=== PATIENT | female | born 1930 | race Caucasian/White ===

== ENCOUNTER 2018-02-10 15:16 | Observation (INO) | payer OTHER ==
[~2018-02-10] VITALS: Ht 157.5 cm; Wt 64.4 kg
[~2018-02-10 15:16] MED LIST: ANTIVERT12.5 MG PO; CLONIDINE HCL0.1 MG PO; COZAAR25 MG PO; FISH OIL 1,0001 EAC1 PO; GABAPENTIN100 MG PO; HYDROCODON-ACE1 EA11 PO; LASIX20 MG PO; METOCLOPRAMIDE10 MG PO; OMEPRAZOLE40 MG PO; SIMVASTATIN20 MG PO; VITAMIN D31000 UNI1 PO; XALATAN2.5 ML OU
[2018-02-10 16:00] LABS: BASOPHILS % 0.3 % (0.0-1.0); EOSINOPHILS # (AUTO) 0.1 (0.0-0.4); EOSINOPHILS % 0.6 % (0.0-6.0); HEMATOCRIT 39.4 % (34.2-44.1); HEMOGLOBIN 12.8 g/dL (12.0-16.0); LYMPHOCYTES # (AUTO) 2.1 (1.0-3.2); LYMPHOCYTES % 18.3 % (18.0-39.1); MEAN CORPUSCULAR HEMOGLOBIN 29.2 pg (28-32); MEAN CORPUSCULAR HGB CONC 32.5 g/dL (31-35); MONOCYTES # (AUTO) 1.2 (0.2-0.8); MONOCYTES % 10.2 % (4.4-11.3); NEUTROPHILS # (AUTO) 8.1 (2.1-6.9); NEUTROPHILS % 70.3 % (38.7-80.0); PLATELET COUNT 283 x10e3/uL (140-360); RED BLOOD COUNT 4.38 x10e6/uL (3.6-5.1)
[2018-02-10 16:18] LABS: ALBUMIN 3.5 g/dL (3.5-5.0); ALBUMIN/GLOBULIN RATIO 0.9 (0.8-2.0); ANION GAP 13.7 mmol/L (8-16); CALCIUM 9.6 mg/dL (8.4-10.2); CREATININE, SERUM 1.01 mg/dL (0.57-1.11); MAGNESIUM 1.9 MG/DL (1.3-2.1); PHOSPHORUS 3.3 MG/DL (2.3-4.7); POTASSIUM 3.7 mmol/L (3.5-5.1)
[2018-02-10] MEDS ORDERED: SODIUM CHLORIDE 0.9% 500ML 500 ML IV ONE (16:30)
[2018-02-10 16:37] LABS: THYROID STIMULATING HORMONE 3.331 uIU/mL (0.350-4.940)
--- NOTE | 2018-02-10 17:08 | Diagnostic Imaging Report ---
PROCEDURE:HIP RIGHT 2-3 VW (+/- PELVIS) COMPARISON:None. INDICATIONS:FALL FINDINGS: See conclusion. CONCLUSION: No evidence of acute fracture or dislocation of the right hip. Partially imaged advanced degenerative changes of the lower lumbar spine. Dictated by: Jackson Rincon M.D. on 02/10/2018 at 17:09 Electronically approved by: Jackson Rincon M.D. on 02/10/2018 at 17:09
[2018-02-10 17:40] LABS: BILIRUBIN,URINE 1+ (NEGATIVE); CLARITY,URINE SL CLOUDY (CLEAR); COLOR,URINE STRAW (YELLOW); KETONES,URINE TRACE (NEGATIVE); LEUKOCYTE ESTERASE ,URINE NEGATIVE (NEGATIVE); NITRITE,URINE NEGATIVE (NEGATIVE); PROTEIN,URINE DIPSTICK 2+ (NEGATIVE); URINE UROBILINOGEN 1 mg/dL (0.2 - 1)
[2018-02-10 17:48] LABS: RBC,URINE 0-5 /HPF (0-5)
[2018-02-10 17:49] LABS: BACTERIA,URINE MODERATE /HPF; EPITHELIAL CELLS,URINE RARE /LPF; MUCUS,URINE FEW (RARE)
[2018-02-10] MEDS ORDERED: SODIUM CHLORIDE FLUSH 10 ML SYR INJ PRN (18:15)
[2018-02-10] MEDS ORDERED: ONDANSETRON HCL INJ 2 MG/ML VIAL IV PRN (18:15)
[2018-02-10] MEDS ORDERED: SODIUM CHLORIDE 0.9% 1000ML 1,000 ML IV SCH (18:15)
--- OUTSIDE RECORDS SUMMARY | 2018-02-10 18:24 | XMS REPORT ---
Author Author [facility] Address Unknown Phone Unavailable Care Team Providers Care Clinical Provider Trainer Name Role Phone REINA CHEUNG Unavailable Unavailable Problems This patient has no known problems. Allergies, Adverse Reactions, Alerts This patient has no known allergies or adverse reactions. Medications This patient has no known medications. Results Test Description Test Time Test Comments Text Results Atomic Results Result Comments HIP RIGHT 2-3 VW (+/- PELVIS) [place] [address] Patient Name: CAILIN FELDER MR #: [id number] : 1930 Age/Sex: 87/F Req #: [id number] [facility] [place] Physician: Ordered by: REINA CHEUNG MD Report #: [id number] Location: ER Room/Bed: Procedure: [id number] DX/HIP RIGHT 2-3 VW (+/- PELVIS) Exam Date: Exam Time: REPORT STATUS: Signed PROCEDURE: HIP RIGHT 2-3 VW (+/- PELVIS) COMPARISON: None. INDICATIONS: FALL FINDINGS: See conclusion. CONCLUSION: No evidence of acute fracture or dislocation of the right hip. Partially imaged advanced degenerative changes of the lower lumbar spine. Dictated by: Jackson Rincon M.D. on 02/10/2018 at 17:09 Electronically approved by: Jackson Rincon M.D. on 02/10/2018 at 17:09 Dictated By: JACKSON RINCON MD 08 Transcribed By: SEBLE on 02/10/181708 COPY TO: REINA CHEUNG MD
[2018-02-10 22:00] VITALS: BP 98/54
[2018-02-10 22:10] VITALS: BP 98/54
[2018-02-11] VITALS (7 sets, daily range): BP systolic 106–123; BP diastolic 42–68
[2018-02-11] MEDS ORDERED: METOCLOPRAMIDE10 MG PO (01:04)
[2018-02-11] MEDS ORDERED: CITRACAL + D E1 EACH PO (01:04)
[2018-02-11] MEDS ORDERED: FAMOTIDINE20 MG PO (01:04)
[2018-02-11] MEDS ORDERED: TIMOPTIC 0.5%1 EACH OP (01:04)
[2018-02-11] MEDS ORDERED: AMLODIPINE BESYL5 MG PO (01:04)
[2018-02-11] MEDS ORDERED: SODIUM CHLORIDE 0.9% 1000ML 1,000 ML IV SCH ×2 (02:15→04:20)
[2018-02-11] MEDS ORDERED: MECLIZINE HCL 12.5 MG TAB PO PRN (08:30)
[2018-02-11] MEDS ORDERED: TIMOLOL MALEATE OP SCH (09:00)
[2018-02-11 09:25] LABS: THYROID STIMULATING HORMONE 2.075 uIU/mL (0.350-4.940)
--- NOTE | 2018-02-11 09:45 | History and Physical ---
CHIEF COMPLAINT: Generalized weakness and low blood pressure secondary to multiple hypertensive medications taken at baseline. PCP: Dr. Benjamin Laureano HISTORY: Bdeyrq[age]ozs[age]ymoa-old female came to the hospital, brought in with generalized weakness. Blood pressure was low. The patient has been having gradual decline for the past few days. She is on multiple medications. The patient at baseline is taking Norvasc, clonidine, furosemide, losartan for her blood pressure. The patient came in with systolic blood pressure 100/38. She went down to 98/54. Currently, the patient is 106/42. The patient is stable at this time. She is on observation. Baseline dementia. PAST MEDICAL HISTORY: Hypertension, reflux history, chronic pain, osteoarthritis, cataract, hyperlipidemia. The patient has diabetes type 2, recurrent urinary tract infection, history of asthma, history of rheumatoid arthritis, and polyneuropathy. PAST SURGICAL HISTORY: Appendectomy, low back surgery, cholecystectomy, hysterectomy, bilateral knee replacement, tonsillectomy and adenoidectomy. SOCIAL HISTORY: Patient lives at home with her family. She does not smoke or use alcohol. No recreational drug use. The patient is retired. ALLERGIES: TO PENICILLIN. HOME MEDICATIONS: Norvasc, calcium, clonidine, Pepcid, Lasix, gabapentin, [place], Xalatan eyedrop, losartan, meclizine, Reglan, omega-3 fatty acid, omeprazole, simvastatin, and timolol eyedrop. PHYSICAL EXAMINATION: VITAL SIGNS: Temperature is 98, blood pressure 106/42, pulse rate is 80, respiration 18. GENERAL: The patient is not in acute distress. She is awake, confused, however. HEENT: Normocephalic, atraumatic. Sclerae anicteric. NECK: Supple grossly. PULMONARY: Clear. CARDIOVASCULAR: Regular rate and rhythm. ABDOMEN: Soft and unremarkable, obese. EXTREMITIES: No cyanosis or edema. NEURO: No focal deficit. LABORATORY: Sodium is 140, potassium 3.7, chloride 102, bicarb 28, BUN 25, creatinine 1.0, glucose 120. WBC is 11.4, hemoglobin 12.8, hematocrit 39.4, platelet is 280,000. Urinalysis shows 1+ bilirubin, negative leukocyte esterase, moderate bacteria, but WBC is 10. IMAGING TESTS: The hip x-ray has no evidence of acute fracture. IMPRESSION: 1. Medical debility. 2. Hypotension secondary to multiple factors, most likely from medication. 3. Baseline dementia with progression. PLAN: correction worker consultation. Add the patient on a low dose on empiric treatment for the urinary tract infection. Check B12 and folic acid level. Home medications some resume. Discontinue IV fluids for prevention of fluid overload. Will discharge planning on this patient. Job#: [id number]
[2018-02-11 09:55] LABS: FOLATE 17.4 ng/mL (7.0-15.4)
[2018-02-11] MEDS: FAMOTIDINE 20 MG TAB PO SCH ×2 (11:00→18:02)
[2018-02-11] MEDS: PANTOPRAZOLE SOD 40 MG TABEC PO SCH (11:00)
[2018-02-11] MEDS: CEPHALEXIN 500 MG CAP PO SCH ×3 (11:00→21:55)
[2018-02-11] MEDS: LATANOPROST(OPTH) 2.5 ML BTL OU SCH ×2 (11:00→21:55)
[2018-02-11] MEDS: TIMOLOL MALEATE 0.5% OPTH DRP 5 ML BTL OP SCH (13:14)
[2018-02-11] MEDS: SIMVASTATIN 20 MG TAB PO SCH (21:00)
[2018-02-12] VITALS (9 sets, daily range): BP systolic 112–133; BP diastolic 56–68
[2018-02-12 06:41] LABS: BASOPHILS % 0.4 % (0.0-1.0); EOSINOPHILS # (AUTO) 0.2 (0.0-0.4); EOSINOPHILS % 2.1 % (0.0-6.0); HEMATOCRIT 33.8 % (34.2-44.1); LYMPHOCYTES # (AUTO) 1.5 (1.0-3.2); LYMPHOCYTES % 20.6 % (18.0-39.1); MEAN CORPUSCULAR HEMOGLOBIN 28.9 pg (28-32); MEAN CORPUSCULAR HGB CONC 32.5 g/dL (31-35); MEAN CORPUSCULAR VOLUME 88.9 fL (81-99); MONOCYTES # (AUTO) 0.6 (0.2-0.8); MONOCYTES % 8.2 % (4.4-11.3); NEUTROPHILS % 68.3 % (38.7-80.0); PLATELET COUNT 232 x10e3/uL (140-360); RED CELL DISTRIBUTION WIDTH 14.6 % (11.7-14.4)
[2018-02-12 06:55] LABS: ANION GAP 13.3 mmol/L (8-16); BLOOD UREA NITROGEN 11 mg/dL (7-26); BUN/CREATININE RATIO 18 (6-25); CARBON DIOXIDE 26 mmol/L (22-29); CHLORIDE 105 mmol/L (98-107); CREATININE, SERUM 0.62 mg/dL (0.57-1.11); EST GLOMERULAR FILTRATION RATE > 60 ML/MIN (60-); GLUCOSE 90 mg/dL (74-118); POTASSIUM 3.3 mmol/L (3.5-5.1); SODIUM 141 mmol/L (136-145)
[2018-02-12] MEDS: CEPHALEXIN 500 MG CAP PO SCH ×3 (07:25→21:14)
[2018-02-12] MEDS ORDERED: POTASSIUM CHLORIDE 10 MEQ TABCR PO NR (08:45)
[2018-02-12] MEDS: TIMOLOL MALEATE 0.5% OPTH DRP 5 ML BTL OP SCH (09:44)
[2018-02-12] MEDS: PANTOPRAZOLE SOD 40 MG TABEC PO SCH (09:44)
[2018-02-12] MEDS: CARVEDILOL 12.5 MG TAB PO SCH ×2 (09:44→16:30)
[2018-02-12] MEDS: FAMOTIDINE 20 MG TAB PO SCH ×2 (09:44→16:29)
[2018-02-12] MEDS: LATANOPROST(OPTH) 2.5 ML BTL OU SCH (21:14)
[2018-02-12] MEDS: SIMVASTATIN 20 MG TAB PO SCH (21:14)
[2018-02-13 04:00] VITALS: BP 105/59
[2018-02-13] MEDS: CEPHALEXIN 500 MG CAP PO SCH ×3 (05:38→21:34)
[2018-02-13 07:37] VITALS: BP 105/59
[2018-02-13 08:22] VITALS: BP 130/62
[2018-02-13] MEDS: FAMOTIDINE 20 MG TAB PO SCH ×2 (08:33→17:45)
[2018-02-13] MEDS: PANTOPRAZOLE SOD 40 MG TABEC PO SCH (08:33)
[2018-02-13] MEDS: TIMOLOL MALEATE 0.5% OPTH DRP 5 ML BTL OP SCH (08:35)
[2018-02-13] MEDS: CARVEDILOL 12.5 MG TAB PO SCH ×2 (08:35→17:47)
[2018-02-13 12:11] VITALS: BP 113/56
[2018-02-13 16:17] VITALS: BP 131/60
[2018-02-13 20:00] VITALS: BP 131/58
[2018-02-13] MEDS: SIMVASTATIN 20 MG TAB PO SCH (21:00)
[2018-02-13] MEDS: LATANOPROST(OPTH) 2.5 ML BTL OU SCH (21:00)
[2018-02-14] VITALS (8 sets, daily range): BP systolic 129–160; BP diastolic 57–67
[2018-02-14] MEDS: CEPHALEXIN 500 MG CAP PO SCH ×3 (06:00→21:21)
[2018-02-14] MEDS: TIMOLOL MALEATE 0.5% OPTH DRP 5 ML BTL OP SCH (08:22)
[2018-02-14] MEDS: FAMOTIDINE 20 MG TAB PO SCH ×2 (08:22→17:30)
[2018-02-14] MEDS: PANTOPRAZOLE SOD 40 MG TABEC PO SCH (08:22)
[2018-02-14] MEDS: CARVEDILOL 12.5 MG TAB PO SCH ×2 (08:23→17:30)
[2018-02-14] MEDS: SIMVASTATIN 20 MG TAB PO SCH (21:21)
[2018-02-14] MEDS: LATANOPROST(OPTH) 2.5 ML BTL OU SCH (21:21)
[2018-02-15] VITALS (9 sets, daily range): BP systolic 101–162; BP diastolic 54–72
[2018-02-15] MEDS: CEPHALEXIN 500 MG CAP PO SCH ×3 (06:18→21:42)
[2018-02-15 06:53] LABS: ANION GAP 14.3 mmol/L (8-16); BLOOD UREA NITROGEN 8 mg/dL (7-26); BUN/CREATININE RATIO 12 (6-25); CALCIUM 9.2 mg/dL (8.4-10.2); CARBON DIOXIDE 27 mmol/L (22-29); CHLORIDE 100 mmol/L (98-107); CREATININE, SERUM 0.65 mg/dL (0.57-1.11); EST GLOMERULAR FILTRATION RATE > 60 ML/MIN (60-); GLUCOSE 101 mg/dL (74-118); POTASSIUM 3.3 mmol/L (3.5-5.1); SODIUM 138 mmol/L (136-145)
[2018-02-15] MEDS: PANTOPRAZOLE SOD 40 MG TABEC PO SCH ×3 (07:30→08:35)
[2018-02-15] MEDS: FAMOTIDINE 20 MG TAB PO SCH ×4 (07:30→15:52)
[2018-02-15] MEDS: TIMOLOL MALEATE 0.5% OPTH DRP 5 ML BTL OP SCH (08:13)
[2018-02-15] MEDS: CARVEDILOL 12.5 MG TAB PO SCH ×4 (08:14→17:32)
[2018-02-15] MEDS ORDERED: POTASSIUM CHLORIDE 20 MEQ TAB CR PO SCH (14:11)
[2018-02-15] MEDS ORDERED: DOCUSATE SODIUM 100 MG CAP PO PRN (14:30)
[2018-02-15] MEDS: DEXTROSE 5%/0.9% SOD CHL 1,000 ML IV SCH (15:51)
[2018-02-15] MEDS: MEGACE 400MG/ 10ML CUP PO SCH (15:52)
[2018-02-15] MEDS: SIMVASTATIN 20 MG TAB PO SCH (21:42)
[2018-02-15] MEDS: LATANOPROST(OPTH) 2.5 ML BTL OU SCH (21:42)
[2018-02-16] VITALS (7 sets, daily range): BP systolic 117–144; BP diastolic 56–81
[2018-02-16] MEDS: CEPHALEXIN 500 MG CAP PO SCH ×3 (05:48→21:31)
[2018-02-16] MEDS: FAMOTIDINE 20 MG TAB PO SCH ×2 (07:30→17:15)
[2018-02-16] MEDS: TIMOLOL MALEATE 0.5% OPTH DRP 5 ML BTL OP SCH (09:41)
[2018-02-16] MEDS: PANTOPRAZOLE SOD 40 MG TABEC PO SCH (09:41)
[2018-02-16] MEDS: DEXTROSE 5%/0.9% SOD CHL 1,000 ML IV SCH (09:42)
[2018-02-16] MEDS: CARVEDILOL 12.5 MG TAB PO SCH ×2 (09:42→17:16)
[2018-02-16] MEDS: MEGACE 400MG/ 10ML CUP PO SCH (09:42)
--- NOTE | 2018-02-16 15:43 | Diagnostic Imaging Report ---
PROCEDURE: A single AP view of the chest. COMPARISON: None. INDICATIONS: SHORTNESS OF BREATH, WEAKNESS FINDINGS: Lines/tubes: None. Lungs: The lungs are moderately inflated. There is bibasilar atelectasis and vascular crowding. No evidence of pneumonia or pulmonary edema. Pleura: There is no pleural effusion or pneumothorax. Heart and mediastinum: The heart and the mediastinum are unremarkable. Bones: No acute bony abnormality. Decreased subacromial space bilaterally suggests rotator cuff tear. Partially visualized lower cervical fusion hardware. IMPRESSION: No acute cardiopulmonary disease. Dictated by: Junior Dill M.D. on 02/16/2018 at 15:44 Electronically approved by: Junior Dill M.D. on 02/16/2018 at 15:44
[2018-02-16] MEDS: LATANOPROST(OPTH) 2.5 ML BTL OU SCH (21:31)
[2018-02-16] MEDS: SIMVASTATIN 20 MG TAB PO SCH (21:31)
[2018-02-17 04:38] VITALS: BP 151/67
[2018-02-17] MEDS: CEPHALEXIN 500 MG CAP PO SCH (06:30)
[2018-02-17 07:56] VITALS: BP 136/78
[2018-02-17 07:57] VITALS: BP 128/74
[2018-02-17] MEDS ORDERED: POTASSIUM CHLORIDE 20 MEQ TAB CR PO PRN (08:45)
[2018-02-17 09:32] LABS: BASOPHILS % 0.2 % (0.0-1.0); EOSINOPHILS # (AUTO) 0.1 (0.0-0.4); EOSINOPHILS % 1.1 % (0.0-6.0); HEMATOCRIT 35.1 % (34.2-44.1); HEMOGLOBIN 11.5 g/dL (12.0-16.0); LYMPHOCYTES # (AUTO) 1.8 (1.0-3.2); LYMPHOCYTES % 19.5 % (18.0-39.1); MEAN CORPUSCULAR HEMOGLOBIN 28.7 pg (28-32); MEAN CORPUSCULAR HGB CONC 32.8 g/dL (31-35); MEAN CORPUSCULAR VOLUME 87.5 fL (81-99); MONOCYTES # (AUTO) 0.8 (0.2-0.8); MONOCYTES % 8.3 % (4.4-11.3); NEUTROPHILS # (AUTO) 6.4 (2.1-6.9); NEUTROPHILS % 70.6 % (38.7-80.0); PLATELET COUNT 275 x10e3/uL (140-360); RED BLOOD COUNT 4.01 x10e6/uL (3.6-5.1); RED CELL DISTRIBUTION WIDTH 14.6 % (11.7-14.4)
[2018-02-17 09:52] LABS: ANION GAP 10.3 mmol/L (8-16); BLOOD UREA NITROGEN 10 mg/dL (7-26); BUN/CREATININE RATIO 16 (6-25); CARBON DIOXIDE 29 mmol/L (22-29); CHLORIDE 105 mmol/L (98-107); CREATININE, SERUM 0.63 mg/dL (0.57-1.11); EST GLOMERULAR FILTRATION RATE > 60 ML/MIN (60-); GLUCOSE 109 mg/dL (74-118); POTASSIUM 3.3 mmol/L (3.5-5.1); SODIUM 141 mmol/L (136-145)
[2018-02-17] MEDS: PANTOPRAZOLE SOD 40 MG TABEC PO SCH (10:44)
[2018-02-17] MEDS: FAMOTIDINE 20 MG TAB PO SCH (10:44)
[2018-02-17] MEDS: TIMOLOL MALEATE 0.5% OPTH DRP 5 ML BTL OP SCH (10:45)
[2018-02-17] MEDS: MEGACE 400MG/ 10ML CUP PO SCH (10:45)
[2018-02-17] MEDS: CARVEDILOL 12.5 MG TAB PO SCH (10:45)
[2018-02-17 11:14] VITALS: BP 124/69
== END 2018-02-17 12:39 ==
LOC: ER 15:22 → ERHOLD 18:21 → IMCU 21:45
PROVIDERS: ADMIT Internal Medicine; ATTEND Internal Medicine
DX: I95.2 Hypotension due to drugs (principal); R53.1 Weakness; F03.90 Unspecified dementia, unspecified severity, without behavioral disturbance, psychotic disturbance, mood disturbance, and anxiety; E78.5 Hyperlipidemia, unspecified; E87.6 Hypokalemia; M06.9 Rheumatoid arthritis, unspecified; T46.5X5A Adverse effect of other antihypertensive drugs, initial encounter; Z88.0 Allergy status to penicillin; G89.29 Other chronic pain; Z91.81 History of falling; R53.81 Other malaise
CPT/HCPCS: 36415 ×5; 71045; 73502; 80048 ×3; 80053; 81001; 82607; 82746; 82948 ×2; 83036; 83540; 83735 ×2; 84100; 84443 ×2; 84466; 84484; 85025 ×3; 87086; 93005 ×2; 97116 ×4; 97139 ×3; 97161; 97530 ×2; 99284; G0378 ×8; J7030 ×2; J7040; J7042

== ENCOUNTER 2018-03-06 12:32 | Inpatient (IN) | payer OTHER ==
[2018-03-06] VITALS (17 sets, daily range): BP systolic 93–136; BP diastolic 65–94
[~2018-03-06] VITALS: Ht 157.5 cm; Wt 78.5 kg
[~2018-03-06 12:32] MED LIST changes: +AMLODIPINE BESYL5 MG PO; +CITRACAL + D E1 EACH PO; +FAMOTIDINE20 MG PO; +TIMOPTIC 0.5%1 EACH OP
--- OUTSIDE RECORDS SUMMARY | 2018-03-06 12:36 | XMS REPORT | Continuity of Care Document ---
Author Author [facility] Organization [facility] Address [address] [place] [address] Phone Unavailable Care Team Providers Care Layout Artist Name Role Phone EDWINA AMADOR MD PCP Insurance Providers Guarantor Cailin Land Address [address] [place] [address] Email [email or web address] Payer [employer] Policy Number [id number] Subscriber's Name Cailin Land Relationship 18 Self / Same As Patient Group Number [id number] Group Name [employer] - Medicare Advantage Divis Effective Date 18 Advance Directives Directive Response Recorded Date/Time Does the patient have an advance directive? No 02/10/18 10:00pm If yes, is advance directive on file with [facility]? Yes 09/07/14 10:30pm If not on file with [facility] will patient provide a copy? Yes 06/20/11 12:44pm Do you have a Directive to Physician? No 02/10/18 4:25pm Do you have a Medical Power of Sheet Pile Hammer Operator? No 02/10/18 4:25pm Do you have an out of hospital Do Not Resuscitate Order? No 02/10/18 4:25pm Do you have any special needs we should be aware of? No 02/10/18 4:25pm Do you have a support person here with you today? Yes 02/10/18 4:25pm Did patient receive Notice of Privacy Practices? Yes 02/10/18 4:25pm Did patient receive patient rights and responsibilities? Yes 02/10/18 4:25pm Problems Medical Problem Onset Date Status Abnormal finding on EKG 09/07/2014 Acute Acute onset of vertigo with vomiting and inability to stand 09/07/2014 Acute Generalized weakness Unknown Hypotension (arterial) Unknown Inability to bear weight 09/07/2014 Acute Laceration Unknown Acute Near syncope 09/07/2014 Acute Syncope 09/07/2014 Acute Vertigo 09/07/2014 Acute Medications Current Home Medications Medication Dose Units Route Directions Days Qty Instructions Start Date Amlodipine Besylate 5 Mg Tablet 5 Mg Oral Twice A Day 30 Tab Calcium Carb & Cit/Vitamin D3 (Citracal + D Er Tablet) 1 Each Tablet.er 1 Tab Oral Twice A Day Cholecalciferol (Vitamin D3) (Vitamin D3) 1,000 Unit Tablet 1,000 Unit Oral Twice A Day Clonidine Hcl 0.1 Mg Tablet 0.1 Mg Oral Bedtime 60 Tab Famotidine 20 Mg Tab 40 Mg Oral Twice A Day 30 Tab Furosemide (Lasix) 20 Mg Tablet 2 Mg Oral Daily 30 Tab Gabapentin 100 Mg Capsule 100 Mg Oral Twice A Day Hydrocodone Bit/Acetaminophen (Hydrocodon-Acetaminophen 5-325) 1 Each Tablet 1 Tab Oral Bedtime Latanoprost (Xalatan) 2.5 Ml Drops 1 Drop Each Eye Bedtime Losartan Potassium (Cozaar) 25 Mg Tablet 50 Mg Oral Daily 60 Tab Meclizine Hcl (Antivert) 12.5 Mg Tablet 25 Mg Oral Every 8 Hours as needed for Dizziness 30 Tab 09/08/14 Metoclopramide Hcl 10 Mg Tablet 5 Mg Oral Daily Wilder-3 Fatty Acids/Fish Oil (Fish Oil 1,000 Mg Softgel) 1 Each Capsule 1,000 Mg Oral Daily Omeprazole 40 Mg Capsule.dr 40 Mg Oral Daily Simvastatin 20 Mg Tablet 20 Mg Oral Daily Timolol Maleate/Pf (Timoptic 0.5% Ocudose Drop) 1 Each Droperette 1 Drop Ophthalmic Daily Past Home Medications Medication Directions Ordered Status Metoclopramide Hcl 10 Mg Tablet, 10 Mg Oral Twice A Day Discontinued Social History Social History Problem Response Recorded Date/Time Onset Date Status Hx Psychiatric Problems No 02/10/2018 10:00pm Not Applicable Not Applicable Hx Eating Disorder No 02/10/2018 10:00pm Not Applicable Not Applicable Hx Substance Use Disorder No 02/10/2018 10:00pm Not Applicable Not Applicable Hx Depression Yes 02/10/2018 10:00pm Not Applicable Not Applicable Hx Alcohol Use No 02/10/2018 10:00pm Not Applicable Not Applicable Hx Substance Use Treatment No 02/10/2018 10:00pm Not Applicable Not Applicable Hx Physical Abuse No 02/10/2018 10:00pm Not Applicable Not Applicable Smoking Status Start Date Stop Date Never Smoker Hospital Discharge Instructions No hospital discharge instruction information available. Plan of Care Discharge Date 02/17/18 12:39pm Disposition TRANSFER GROUP HOME Prescriptions See Medication Section Functional Status Query Response Date Recorded FUNCTIONAL STATUS . February 11, 2018 3:51pm Assistive Devices Standard Walker February 10, 2018 10:00pm Ambulation Ability Independent February 10, 2018 10:00pm Toileting Ability Standby Assistance February 15, 2018 5:12pm Allergies, Adverse Reactions, Alerts Allergen Type Severity Reaction Status Last Updated Penicillin Allergy Mild Active 04/12/10 Immunizations No immunization information available. Vital Signs Acute Vital Signs Vital Response Date/Time Temperature (Fahrenheit) 96.4 degrees F (97.6 - 99.5) 02/17/2018 11:14am Pulse Pulse Rate (adult) 70 bpm (60 - 90) 02/17/2018 11:14am Respiratory Rate 19 bpm (12 - 24) 02/17/2018 11:14am Blood Pressure 124/69 mm Hg 02/17/2018 11:14am Height 5 ft 2 in 02/10/2018 3:32pm Weight 142 lb 02/16/2018 2:13am Body Mass Index 26.0 kg/m^2 02/16/2018 2:13am Results Laboratory Results Test Name Result Units Flags Reference Collection Date/Time Result Date/ Time Comments White Blood Count 9.03 x10e3/uL 4.8-10.8 02/17/2018 9:25am 02/17/2018 9 :34am Red Blood Count 4.01 x10e6/uL 3.6-5.1 02/17/2018 9:02/17/2018 9: 34am Hemoglobin 11.5 g/dL L 12.0-16.0 02/17/2018 9:02/17/2018 9:34am Hematocrit 35.1 % 34.2-44.1 02/17/2018 9:02/17/2018 9:34am Mean Corpuscular Volume 87.5 fL 81-99 02/17/2018 9:02/17/2018 9: 34am Mean Corpuscular Hemoglobin 28.7 pg 28-32 02/17/2018 9:02/17/2018 9:34am Mean Corpuscular Hemoglobin Concent 32.8 g/dL 31-35 02/17/2018 9:02/17/2018 9:34am Red Cell Distribution Width 14.6 % H 11.7-14.4 02/17/2018 9:2017 9:34am Platelet Count 275 x10e3/uL 140-360 02/17/2018 9:02/17/2018 9: 34am Neutrophils (%) (Auto) 70.6 % 38.7-80.0 02/17/2018 9:02/17/2018 9: 34am Lymphocytes (%) (Auto) 19.5 % 18.0-39.1 02/17/2018 9:02/17/2018 9: 34am Monocytes (%) (Auto) 8.3 % 4.4-11.3 02/17/2018 9:02/17/2018 9: 34am Eosinophils (%) (Auto) 1.1 % 0.0-6.0 02/17/2018 9:02/17/2018 9: 34am Basophils (%) (Auto) 0.2 % 0.0-1.0 02/17/2018 9:02/17/2018 9:34am IM GRANULOCYTES % 0.3 % 0.0-1.0 02/17/2018 9:02/17/2018 9:34am Neutrophils # (Auto) 6.4 2.1-6.9 02/17/2018 9:02/17/2018 9:34am Lymphocytes # (Auto) 1.8 1.0-3.2 02/17/2018 9:25am 02/17/2018 9:34am Monocytes # (Auto) 0.8 0.2-0.8 02/17/2018 9:25am 02/17/2018 9:34am Eosinophils # (Auto) 0.1 0.0-0.4 02/17/2018 9:25am 02/17/2018 9:34am Basophils # (Auto) 0.0 0.0-0.1 02/17/2018 9:25am 02/17/2018 9:34am Absolute Immature Granulocyte (auto 0.03 x10e3/uL 0-0.1 02/17/2018 9: 25am 02/17/2018 9:34am Urine Color STRAW YELLOW 02/10/2018 5:pm 02/10/2018 5:40pm Urine Clarity SL CLOUDY CLEAR 02/10/2018 5:pm 02/10/2018 5:40pm Urine Specific [place] 1.020 1.010-1.025 02/10/2018 5:21pm 2017 5:40pm Urine pH 5 5 - 7 02/10/2018 5:02/10/2018 5:40pm Urine Leukocyte Esterase NEGATIVE NEGATIVE 02/10/2018 5:pm 2017 5:40pm Urine Nitrite NEGATIVE NEGATIVE 02/10/2018 5:pm 02/10/2018 5:40pm Urine Protein 2+ H NEGATIVE 02/10/2018 5:pm 02/10/2018 5:40pm Urine Glucose (UA) NEGATIVE NEGATIVE 02/10/2018 5:pm 02/10/2018 5: 40pm Urine Ketones TRACE H NEGATIVE 02/10/2018 5:02/10/2018 5:40pm Urine Urobilinogen 1 mg/dL 0.2 - 1 02/10/2018 5:02/10/2018 5:40pm Urine Bilirubin 1+ H NEGATIVE 02/10/2018 5:02/10/2018 5:40pm Urine Blood NEGATIVE NEGATIVE 02/10/2018 5:pm 02/10/2018 5:40pm Urine WBC 6-10 /HPF H 0-5 02/10/2018 5:pm 02/10/2018 5:49pm Urine RBC 0-5 /HPF 0-5 02/10/2018 5:pm 02/10/2018 5:49pm Urine Bacteria MODERATE /HPF H NONE 02/10/2018 5:21pm 02/10/2018 5:49pm Urine Epithelial Cells RARE /LPF NONE 02/10/2018 5:pm 02/10/2018 5: 49pm Urine Hyaline Casts 2-5 H 0-1 02/10/2018 5:21pm 02/10/2018 5:49pm Urine Mucus FEW H RARE 02/10/2018 5:pm 02/10/2018 5:49pm Sodium Level 141 mmol/L 136-145 02/17/2018 9:2502/17/2018 9:53am Potassium Level 3.3 mmol/L L 3.5-5.1 02/17/2018 9:2502/17/2018 9: 53am Chloride Level 105 mmol/L 98-107 02/17/2018 9:02/17/2018 9:53am Carbon Dioxide Level 29 mmol/L 22-02/17/2018 9:25am 02/17/2018 9: 53am Anion Gap 10.3 mmol/L 8-02/17/2018 9:02/17/2018 9:53am Blood Urea Nitrogen 10 mg/dL 7-02/17/2018 9:02/17/2018 9:53am Creatinine 0.63 mg/dL 0.57-1.11 02/17/2018 9:2502/17/2018 9:53am BUN/Creatinine Ratio 16 6-02/17/2018 9:02/17/2018 9:53am Estimat Glomerular Filtration Rate > 60 ML/MIN 60- 02/17/2018 9: 9:53am Ranges were taken from the National Kidney Disease Education Program and the National Kidney Foundation literature. Reference ranges: 60 or greater: Normal 16-59 (for 3 consecutive months): Chronic kidney disease 15 or less: Kidney failure Glucose Level 109 mg/dL 74-118 02/17/2018 9:25am 02/17/2018 9:53am Calcium Level 9.0 mg/dL 8.4-10.2 02/17/2018 9:25am 02/17/2018 9:53am Bedside Glucose 101 mg/dL 70-120 02/12/2018 3:55pm 02/12/2018 4:03pm Meter ID: [id number] Hemoglobin A1c Percent 5.1 % 4.0-7.0 02/11/2018 8:40am 02/11/2018 8: 54am Phosphorus Level 3.3 MG/DL 2.3-4.7 02/10/2018 3:49pm 02/10/2018 4:19pm Magnesium Level 1.7 MG/DL 1.3-2.1 02/11/2018 8:40am 02/11/2018 9:49am Iron Level 22 ug/dL L 50-170 02/11/2018 8:40am 02/11/2018 9:08am Total Iron Binding Capacity 221 ug/dL L 261-478 02/11/2018 8:40am 2017 9:08am Percent Iron Saturation 10 % L 15-50 02/11/2018 8:40am 02/11/2018 9: 08am Transferrin 158 mg/dL L 180-382 02/11/2018 8:40am 02/11/2018 9:08am Total Bilirubin 1.2 mg/dL 0.2-1.2 02/10/2018 3:49pm 02/10/2018 4:19pm Aspartate Amino Transf (AST/SGOT) 16 IU/L 5-34 02/10/2018 3:49pm 2017 4:19pm Alanine Aminotransferase (ALT/SGPT) 20 IU/L 0-55 02/10/2018 3:49pm 08/2018 4:19pm Total Protein 7.2 g/dL 6.5-8.1 02/10/2018 3:49pm 02/10/2018 4:19pm Albumin 3.5 g/dL 3.5-5.0 02/10/2018 3:49pm 02/10/2018 4:19pm Globulin 3.7 g/dL H 2.3-3.5 02/10/2018 3:49pm 02/10/2018 4:19pm Albumin/Globulin Ratio 0.9 0.8-2.0 02/10/2018 3:49pm 02/10/2018 4: 19pm Alkaline Phosphatase 59 IU/L 40-150 02/10/2018 3:49pm 02/10/2018 4: 19pm Troponin I 0.009 ng/mL 0-0.300 02/10/2018 3:49pm 02/10/2018 4:38pm Vitamin B12 Level 601 pg/mL 213-816 02/11/2018 8:40am 02/11/2018 9: 56am Folate 17.4 ng/mL H 7.0-15.4 02/11/2018 8:40am 02/11/2018 9:56am Thyroid Stimulating Hormone (TSH) 2.075 uIU/mL 0.350-4.940 02/11/2018 8: 40am 02/11/2018 9:26am Procedures No procedure information available. Encounters Encounter Location Arrival/Admit Date Discharge/Depart Date Attending Provider Discharged Inpatient (obs) [facility] 02/10/18 6:21pm 12:39pm LORENA LAKHANI MD
[2018-03-06] MEDS: SODIUM CHLORIDE 0.9% 1000ML 1,000 ML IV SCH ×5 (13:06→23:15)
[2018-03-06 13:33] LABS: BASOPHILS % 0.2 % (0.0-1.0); HEMATOCRIT 34.3 % (34.2-44.1); HEMOGLOBIN 11.1 g/dL (12.0-16.0); LYMPHOCYTES # (AUTO) 1.7 (1.0-3.2); LYMPHOCYTES % 14.3 % (18.0-39.1); MEAN CORPUSCULAR HEMOGLOBIN 28.4 pg (28-32); MEAN CORPUSCULAR HGB CONC 32.4 g/dL (31-35); MEAN CORPUSCULAR VOLUME 87.7 fL (81-99); MONOCYTES # (AUTO) 0.7 (0.2-0.8); MONOCYTES % 5.9 % (4.4-11.3); NEUTROPHILS # (AUTO) 9.4 (2.1-6.9); PLATELET COUNT 244 x10e3/uL (140-360); RED BLOOD COUNT 3.91 x10e6/uL (3.6-5.1); RED CELL DISTRIBUTION WIDTH 15.5 % (11.7-14.4)
[2018-03-06 13:37] LABS: ABG HCO3 20 mmol/L (23-28); ABG PCO2 36 mmHg (41-51); ABG PH 7.35 (7.31-7.41); ABG PO2 165 mmHg (80-105)
[2018-03-06 13:51] LABS: CLARITY,URINE SL CLOUDY (CLEAR); COLOR,URINE AMBER (YELLOW)
[2018-03-06 13:52] LABS: BILIRUBIN,URINE 2+ (NEGATIVE); KETONES,URINE NEGATIVE (NEGATIVE); LEUKOCYTE ESTERASE ,URINE NEGATIVE (NEGATIVE); NITRITE,URINE NEGATIVE (NEGATIVE); PROTEIN,URINE DIPSTICK 1+ (NEGATIVE); URINE UROBILINOGEN 1 mg/dL (0.2 - 1)
[2018-03-06 14:03] LABS: ALBUMIN 2.7 g/dL (3.5-5.0); ALBUMIN/GLOBULIN RATIO 0.6 (0.8-2.0); ANION GAP 20.6 mmol/L (8-16); CALCIUM 9.5 mg/dL (8.4-10.2); CREATININE, SERUM 5.74 mg/dL (0.57-1.11); POTASSIUM 3.6 mmol/L (3.5-5.1)
[2018-03-06 14:05] LABS: CREATINE KINASE MB 2.1 ng/mL (0-5.0)
[2018-03-06 14:08] LABS: BACTERIA,URINE FEW /HPF; EPITHELIAL CELLS,URINE FEW /LPF; MUCUS,URINE MODERATE (RARE); RBC,URINE >50 /HPF (0-5)
[2018-03-06] MEDS ORDERED: LEVOFLOXACIN 750MG/D5W 150ML 150 ML IV ONE (14:30)
[2018-03-06] MEDS: NOREPINEPHRINE INJ 4MG/4ML 8 MG in DEXTROSE 5% 250ML 250 ML IV SCH (14:30)
[2018-03-06] MEDS ORDERED: CLINDAMYCIN 300MG 50 ML IV ONE (14:30)
[2018-03-06] MEDS ORDERED: ONDANSETRON HCL 4 MG ORAL DISINTEGRATING TAB PO ONE (14:45)
[2018-03-06 14:47] LABS: INR 1.21; PARTIAL THROMBOPLASTIN TIME 35.4 seconds (23.8-35.5); PROTHROMBIN TIME 14.4 seconds (11.9-14.5)
--- NOTE | 2018-03-06 15:53 | Diagnostic Imaging Report ---
PROCEDURE: A single AP view of the chest. COMPARISON: None. INDICATIONS: WEAK, AMS FINDINGS: Lines/tubes: None. Lungs: The lungs are moderately inflated and clear. Central pulmonary venous congestion. There is no evidence of pneumonia or pulmonary edema. Pleura: There is no pleural effusion or pneumothorax. Heart and mediastinum: Aortic arch calcifications. The heart and the mediastinum are otherwise unremarkable. Bones: No acute bony abnormality. Irregularity of the right humeral head. Decreased subacromial space suggestive of rotator cuff tears. Partially visualized lower cervical fusion hardware. IMPRESSION: 1. No acute cardiopulmonary abnormalities. 2. Irregularity of the right humeral head may be related to projection or reflect a fracture. Recommend correlation with point tenderness and if indicated, dedicated right shoulder radiographs. Dictated by: Junior Dill M.D. on 03/06/2018 at 15:54 Electronically approved by: Junior Dill M.D. on 03/06/2018 at 15:54
--- NOTE | 2018-03-06 16:50 | Diagnostic Imaging Report ---
PROCEDURE: CT ABDOMEN AND PELVIS WITHOUT CONTRAST TECHNIQUE: The abdomen and pelvis were scanned utilizing a multidetector helical scanner from the diaphragm to the lesser trochanter. No IV contrast was administered because of physician request. Coronal and sagittal multiplanar reformations were obtained. DLP: 548.07 mGy-cm COMPARISON: Abdominal CT 04/12/2010 INDICATIONS: ABDOMINAL DISTENTION, PT UNABLE TO DRINK PO CONTRAST, GFR 7 FINDINGS: ABSENCE OF INTRAVENOUS CONTRAST DECREASES SENSITIVITY FOR DETECTION OF FOCAL LESIONS AND VASCULAR PATHOLOGY. LOWER THORAX: Small amount of air in the right ventricle may be secondary to an IV unrelated to this non-contrast CT scan. Mild dependent atelectasis. HEPATOBILIARY: No focal hepatic lesions. No biliary ductal dilatation. Cholecystectomy clips. SPLEEN: No splenomegaly. Upper normal measuring 12.4 cm. PANCREAS: No focal masses or ductal dilatation. ADRENALS: No adrenal nodules. KIDNEYS/URETERS: No hydronephrosis, stones, or solid mass lesions. Multiple fluid attenuating lesions in the right kidney likely represent cysts. PELVIC ORGANS/BLADDER: Wallace catheter in place with expected air in the urinary bladder. PERITONEUM / RETROPERITONEUM: No free air or fluid. LYMPH NODES: No lymphadenopathy. VESSELS: Diffuse atherosclerotic calcifications. No abdominal aortic aneurysm. GI TRACT: Rectum is distended with stool to approximately 9.1 x 10 cm (AP x TV). Normal amount of stool within the remaining colon. Sigmoid and descending colonic diverticula without evidence of diverticulitis. No additional bowel distention or wall thickening. BONES AND SOFT TISSUES: Gluteal injection granulomas. L3 and L4 laminectomies. Macrocalcifications in both breasts. Multilevel degenerative changes of the spine, worse from L3-S1. IMPRESSION: 1. No evidence of bowel obstruction. 2. Rectum is distended with stool to approximately 10 cm. Consider disimpaction. 3. Descending and sigmoid colonic diverticulosis without evidence of diverticulitis. Dictated by: Junior Dill M.D. on 03/06/2018 at 16:51 Electronically approved by: Junior Dill M.D. on 03/06/2018 at 16:51
[2018-03-06] MEDS ORDERED: SODIUM CHLORIDE 0.9% 1000ML 1,000 ML IV SCH (17:07)
[2018-03-06] MEDS: DEXTROSE 5%/0.45% SOD CHL 1,000 ML IV SCH (17:15)
[2018-03-06] MEDS ORDERED: ASPIRIN 81 MG CHEW TAB PO ONE (17:15)
--- NOTE | 2018-03-06 17:22 | Diagnostic Imaging Report ---
History:87-year-old female with acute encephalopathy Comparison studies:09/07/2014 CT head Technique: Axial images were obtained from the skull base to the vertex. Coronal and sagittal images reconstructed from the axial data. Intravenous contrast: None Findings: The images are degraded by patient motion. Scalp/skull: No abnormalities. Extra-axial spaces: No masses. No fluid collections. Brain sulci: Mildly prominent. Ventricles: Mild compensatory dilatation. No hydrocephalus. Parenchyma: Scattered hypodensities in the supratentorial white matter are small vessel ischemic changes. No masses, hemorrhage, acute or chronic cortical vascular insults. Sellar/suprasellar region: No abnormalities. Craniocervical junction: Patent foramen magnum. No Chiari one malformation. Incidental findings: Atherosclerotic calcifications in the carotid siphons . Impression: 1. The images are degraded by patient motion. 2. Within limitations, no gross acute abnormalities. Chronic findings: 1. Mild generalized volume loss. 2. Mild supratentorial white matter small vessel ischemic changes. A preliminary report was given by Neuroradiology fellow Dr. Bernal at 5:22 PM on 03/06/2018. I have reviewed the study and agree with the findings in the preliminary report. Signed by: Dr. Billie Love M.D. on 03/06/2018 8:05 PM
--- NOTE | 2018-03-06 17:33 | Diagnostic Imaging Report ---
PROCEDURE:X-RAY RIGHT SHOULDER, COMPLETE COMPARISON:Same day chest radiograph. INDICATIONS:RULE OUT RIGHT SHOULDER FRACTURE FINDINGS: Limited exam secondary to limited patient mobility from altered mental status. Multiple AP views of the right shoulder. Irregularity of the right humeral head remains indeterminate and may represent a fracture or secondary to projection. The bones are well-mineralized. The soft-tissues are unremarkable. CONCLUSION: Limited exam secondary to limited patient mobility. Irregularity of the right humeral head remains indeterminate and may represent a fracture or secondary to projection and arm rotation. Consider correlation with focal point tenderness and if indicated, shoulder CT without contrast for further evaluation. Dictated by: Junior Dill M.D. on 03/06/2018 at 17:34 Electronically approved by: Junior Dill M.D. on 03/06/2018 at 17:34
[2018-03-06] MEDS ORDERED: CEFTRIAXONE SOD 1 GM VIAL IV SCH (17:45)
[2018-03-06] MEDS ORDERED: FUROSEMIDE INJ 10 MG/ML 2 ML VIAL IV STA (18:24)
[2018-03-06] MEDS ORDERED: ALBUTEROL SULF 0.083% NEB SOLN 3 ML NEB NEB STA (18:24)
[2018-03-06] MEDS ORDERED: FUROSEMIDE INJ 10 MG/ML 4 ML VIAL ONE (18:27)
[2018-03-06] MEDS ORDERED: FUROSEMIDE INJ 10 MG/ML 2 ML VIAL IV ONE (18:45)
[2018-03-06] MEDS ORDERED: SUCCINYLCHOLINE 200 MG/10 ML SYR IV STA (18:59)
[2018-03-06] MEDS ORDERED: HYDROMORPHONE 20MG/ NS 100ML IV PRN (19:15)
[2018-03-06] MEDS ORDERED: HYDROMORPHONE 100 ML IV PRN (19:30)
--- NOTE | 2018-03-06 19:40 | Diagnostic Imaging Report ---
SINGLE VIEW CHEST, 03/06/2018 Clinical History: Line placement; intubation. Technique: Single, portable AP view chest. Comparison: None. Findings: See impression. Impression: 1. Interval intubation. Endotracheal tube tip about 3.7 cm from the naeem. 2. Right internal jugular central venous catheter placement with the tip at the atrial caval junction. 3. Clear lungs. No pneumothorax. No pleural effusion. 4. Upper limits of normal heart size for technique. 5. Intact skeleton. Chronic rotator cuff tears bilaterally. This report was generated with voice-recognition technology. Errors in pond sawyer can occur. Please interpret accordingly and contact a radiologist if there are any questions regarding the report. Signed by: Dr. Kj Soria M.D. on 03/06/2018 7:36 PM
[2018-03-06] MEDS: MIDAZOLAM HCL 25 MG in SODIUM CHLORIDE 0.9% 50ML 45 ML IV PRN (19:49)
--- NOTE | 2018-03-06 20:06 | Diagnostic Imaging Report ---
ADDENDUM #1 Please disregard the original report dictated by Dr. Estevez. Non-tunneled Central Venous Catheter Placement 03/06/2018 Pre-Procedure Diagnosis: Multiorgan failure Post-procedure Diagnosis:Multiorgan failure Honey Extractor: Chester Soria Electric Motor Controls Assembler: None Sedation: None. 1% lidocaine local anesthesia. Estimate blood loss: None Blood administered: None Complications: None Implants/Grafts: 16 cm 7-Czech 3 lumen CVC Specimen: None Procedure: Informed consent was obtained and the patient positioned supine in the EC. A timeout was performed, followed by preliminary ultrasound of the right internal jugular vein (see findings below). The right neck was prepped and draped in standard fashion. Using real-time ultrasound guidance a 18 gauge vascular needle was used to access the right internal jugular vein. An image was stored in the electronic medical record. A wire was advanced while monitoring the patient's cardiac rhythm and the needle exchanged for a non-tunneled central venous catheter using standard Salinger technique. At the end of the procedure the catheter was flushed, secured to the skin and a sterile dressing applied. The patient tolerated the procedure well and without immediate complication. Findings: Patent right internal jugular vein as demonstrated by normal ultrasound compressibility. Impression: Successful placement of a non-tunneled right internal jugular central venous catheter using ultrasound guidance. This report was generated with voice-recognition technology. Errors in car dumper can occur. Please interpret accordingly and contact a radiologist if there are any questions regarding the report. Signed by: Dr. Kj Soria M.D. on 03/07/2018 1:12 PM ORIGINAL REPORT EXAM: NON-TUNNELLED CVC CATH PLACMNT DATE: 03/06/2018 12:00 AM INDICATION: Right IJ placement. COMPARISON: None FINDINGS: 3 static grayscale sonographic images of the right internal jugular vein. No Doppler images available. IMPRESSION: 3 static grayscale images right internal jugular vein. Nurse called for stat report at 1999. Signed by: Dr. Joel Estevez MD on 03/06/2018 8:03 PM
[2018-03-06 20:50] LABS: ABG HCO3 23 mmol/L (23-28); ABG PCO2 48 mmHg (41-51); ABG PH 7.28 (7.31-7.41); ABG PO2 118 mmHg (80-105)
[2018-03-06 21:31] LABS: CREATINE KINASE MB 3.7 ng/mL (0-5.0)
[2018-03-07] VITALS (89 sets, daily range): BP systolic 74–121; BP diastolic 47–98
[2018-03-07] MEDS: DEXTROSE 5%/0.45% SOD CHL 1,000 ML IV SCH (03:15)
[2018-03-07] MEDS: SODIUM CHLORIDE 0.9% 1000ML 1,000 ML IV SCH ×4 (04:15→20:00)
[2018-03-07 05:42] LABS: BASOPHILS % 0.1 % (0.0-1.0); EOSINOPHILS % 0.1 % (0.0-6.0); HEMATOCRIT 35.4 % (34.2-44.1); HEMOGLOBIN 11.6 g/dL (12.0-16.0); LYMPHOCYTES # (AUTO) 1.9 (1.0-3.2); LYMPHOCYTES % 13.8 % (18.0-39.1); MEAN CORPUSCULAR HGB CONC 32.8 g/dL (31-35); MEAN CORPUSCULAR VOLUME 85.3 fL (81-99); MONOCYTES # (AUTO) 0.9 (0.2-0.8); MONOCYTES % 6.8 % (4.4-11.3); NEUTROPHILS # (AUTO) 10.6 (2.1-6.9); NEUTROPHILS % 78.5 % (38.7-80.0); PLATELET COUNT 273 x10e3/uL (140-360); RED BLOOD COUNT 4.15 x10e6/uL (3.6-5.1); RED CELL DISTRIBUTION WIDTH 15.2 % (11.7-14.4)
[2018-03-07 06:05] LABS: ALBUMIN 2.1 g/dL (3.5-5.0); ALBUMIN/GLOBULIN RATIO 0.5 (0.8-2.0); ANION GAP 15.2 mmol/L (8-16); CALCIUM 8.4 mg/dL (8.4-10.2); CREATININE, SERUM 2.94 mg/dL (0.57-1.11); POTASSIUM 3.2 mmol/L (3.5-5.1)
[2018-03-07 06:46] LABS: CREATINE KINASE MB 3.6 ng/mL (0-5.0)
[2018-03-07] MEDS: MIDAZOLAM HCL 25 MG in SODIUM CHLORIDE 0.9% 50ML 45 ML IV PRN (08:03)
[2018-03-07] MEDS ORDERED: CEFTRIAXONE SOD 1 GRAM/0.9% SOD CHL 50ML BAG IV SCH (09:00)
[2018-03-07] MEDS ORDERED: SODIUM CHLORIDE 0.9% 1000ML 1,000 ML ONE (10:37)
[2018-03-07] MEDS: VASOPRESSIN 100 UNIT in DEXTROSE 5% 100ML 95 ML IV SCH (11:15)
[2018-03-07] MEDS ORDERED: POTASSIUM CHLORIDE 20MEQ/100ML 200 ML IV ONE (11:30)
[2018-03-07] MEDS: AZTREONAM 1 GM/NS 50 ML 50 ML IV SCH ×2 (11:59→23:31)
[2018-03-07] MEDS ORDERED: SOD PHOSPHATE/SOD BIPHOSPHATE ENEMA 132 ML BTL PR ONE (12:00)
--- NOTE | 2018-03-07 13:11 | Diagnostic Imaging Report ---
PROCEDURE:ULTRASOUND GUIDANCE FOR VASCULAR ACCESS COMPARISON:None. INDICATIONS:Multiorgan failure Pull Through Hooker: Chester Soria Complications: None Estimated blood loss: None Implants: 7 Palestinian 16 cm right internal jugular 3 lm central venous catheter. Sedation: 1% lidocaine local anesthesia. Procedure: Informed consent was obtained. The patient was placed supine on the EC. A time out was performed. The right neck was prepped and draped in standard sterile fashion. Using real time ultrasound guidance an 18 gauge singlewall needle was advanced into the right internal jugular vein. An image was stored in the electronic medical record. The needle was exchanged for a 7 Palestinian 16 cm 3 lm central venous catheter using standard Seldinger technique. Blood return was confirmed, the catheter flushed, secured to the skin and a sterile dressing applied. The patient tolerated the procedure well. No complications. FINDINGS: Patent right internal jugular vein as demonstrated by normal ultrasound compressibility. CONCLUSION: Successful right internal jugular non-tunneled central venous catheter placement using ultrasound guidance. Dictated by: Kj Soria M.D. on 03/07/2018 at 13:14 Electronically approved by: Kj Soria M.D. on 03/07/2018 at 13:14
--- NOTE | 2018-03-07 14:43 | History and Physical ---
CHIEF COMPLAINT: Respiratory failure, sepsis with shock. HISTORY: This 87-year-old female, demented, was at [facility] and then subsequently went to [facility] for memory care. Patient was there for a brief period of a few days and then was brought into the hospital due to low blood pressure, unresponsive and on a ventilator due to septic shock. Patient is on ventilator support now and IV fluids. She is critically stable. PAST MEDICAL HISTORY: Advanced dementia, hypertension, hyperlipidemia, history of glaucoma. PAST SURGICAL HISTORY: Appendectomy, lower back surgery, cholecystectomy, hysterectomy, bilateral knee replacement, tonsillectomy, adenoidectomy. SOCIAL HISTORY: Patient lives in the assisted living memory unit. HOME MEDICATIONS: List reviewed. ALLERGIES: PENICILLIN. REVIEW OF SYSTEMS: Unable to obtain. Patient on sedation, pressor support and ventilator support. PHYSICAL EXAMINATION VITAL SIGNS: Temperature is 99. Blood pressure 193/63. Pulse rate 103. Respirations 18. Vent support. HEENT: Normocephalic, atraumatic, anicteric. NECK: Supple grossly. PULMONARY: Clear. CARDIOVASCULAR: Tachycardia. ABDOMEN: Soft. Positive bowel sounds. No distention. EXTREMITIES: No cyanosis or edema. NEUROLOGIC: Sedation on vent support. Urinalysis positive for urinary tract infection. BUN and creatinine on admission are 80 and 5.7 respectively. Sodium level was 142. IMPRESSION 1. Acute kidney failure. 2. Sepsis with shock. 3. Respiratory failure secondary to the above. 4. Metabolic acidosis. PLAN: Multiple boluses of IV fluids already given. Continue with normal saline 125 mL an hour. Continue with Rocephin 1 g daily. Stool disimpaction. Supportive measures. Family will be back in town in approximately 24 to 48 hours, and we will decide on the next step in taking care of this patient. Job#: [id number]
--- NOTE | 2018-03-07 14:53 | Consultation ---
DATE OF CONSULTATION: PULMONARY/CRITICAL CARE CONSULTATION REASON FOR CONSULTATION: ICU management. HPI: Ms. Land is an 87-year-old female who [facility] because of decreased responsiveness, confusion, and altered mental status. Patient has history of dementia and lives at the [facility]. She has been bed ridden. She was found to be hypotensive and lethargic. She was intubated in the emergency room. She is currently intubated, off sedation, on multiple pressors. CT of the abdomen and pelvis is showing stool infection. She is in acute kidney injury. REVIEW OF SYSTEMS: Unable to assess any as patient is intubated and not responsive. PAST MEDICAL HISTORY: Hypertension, diabetes, dementia, glaucoma, gastroesophageal reflux disease, diabetic neuropathy, and history of UTIs in the past. FAMILY AND SOCIAL HISTORY: She is [facility] the [facility]. She has no history of smoking or drinking. PHYSICAL EXAMINATION VITALS: Temperature 99.5, pulse of 105, and blood pressure 93/63. SKIN: Warm and dry. HEENT: Head, atraumatic normocephalic. NECK: Supple. No JVD. She is intubated. CHEST: Clear to auscultation bilaterally. ABDOMEN: Soft and nontender. EXTREMITIES: No clubbing, cyanosis, or edema. NEUROLOGIC: Off sedation, but nonresponsive. LABORATORY DATA: White count of 11,000, hemoglobin 11.1, and platelets 244 with . Chemistry, creatinine was 5.74 yesterday, now it is 2.94; potassium 3.2, chloride 108, and bicarb 19. INR is 1.21. ASSESSMENT AND PLAN: Ms. Land is an 87-year-old female who presented with alteration in consciousness, found to be in acute kidney injury and fecal impaction on CT scan of the abdomen and pelvis. CURRENT PROBLEMS 1. Septic shock, etiology is not very clear. Patient's chest x-ray is not showing any evidence of pneumonia. She is a [facility] resident. Possibly has GI source versus a urinary source as UA is showing 11 to 20 wbc's. I will start the patient on IV Zosyn, and she is a [facility] resident and needs broader coverage. 2. Acute kidney injury, likely dehydration; responded to fluid. Creatinine has come down to 2.94. I will start the patient on IV normal saline at 125 mL an hour, discontinue the dopamine, wean off Levophed, and add vasopressin. 3. Acute hypoxic respiratory failure: Patient's blood gas showed some hypoxia yesterday; however, the major reason for intubation was altered level of consciousness and patient was unable to protect the airway. I will continue the patient on the ventilator support for now. She is on FiO2 of 40%, which will be continued. 4. Encephalopathy, currently off sedation. Patient is not waking up, baseline dementia, unsure if this is her baseline. CT of the head was done, which did not show any stroke. 5. Discussed with patient's family member at bedside in detail and also discussed with Dr. Chávez. Critical care time spent 50 minutes. Job#: [id number] CARMELLA
[2018-03-07] MEDS: NOREPINEPHRINE INJ 4MG/4ML 8 MG in DEXTROSE 5% 250ML 250 ML IV SCH (17:15)
--- NOTE | 2018-03-07 18:56 | Diagnostic Imaging Report ---
EXAM: Abdomen 1 Views INDICATION: \S\OGT PLACEMENT \S\[id number] \S\[id number] COMPARISON: CT abdomen and pelvis 03/06/2018 FINDINGS: Interval placement of NG/G-tube with tip overlying the gastric fundus. Mild of stool in the colon. No dilated loops of small bowel. No renal calculi. No abnormal soft tissue masses. Mild multilevel degenerative changes in the lumbar spine and pelvis. Right upper quadrant cholecystectomy clips. IMPRESSION: Interval placement of NG/OG tube with tip overlying the gastric fundus. Signed by: Dr. Mini Prince M.D. on 03/07/2018 6:52 PM
[2018-03-07] MEDS: METRONIDAZOLE 500MG/NS 100ML 100 ML IV SCH (22:03)
[2018-03-08] VITALS (86 sets, daily range): BP systolic 46–109; BP diastolic 23–92
[2018-03-08] MEDS: SODIUM CHLORIDE 0.9% 1000ML 1,000 ML IV SCH ×3 (02:45→18:10)
[2018-03-08 05:58] LABS: BASOPHILS % 0.1 % (0.0-1.0); HEMATOCRIT 29.1 % (34.2-44.1); HEMOGLOBIN 9.4 g/dL (12.0-16.0); LYMPHOCYTES # (AUTO) 2.4 (1.0-3.2); LYMPHOCYTES % 16.7 % (18.0-39.1); MEAN CORPUSCULAR HEMOGLOBIN 28.1 pg (28-32); MEAN CORPUSCULAR HGB CONC 32.3 g/dL (31-35); MEAN CORPUSCULAR VOLUME 87.1 fL (81-99); MONOCYTES % 6.9 % (4.4-11.3); NEUTROPHILS # (AUTO) 10.9 (2.1-6.9); NEUTROPHILS % 75.3 % (38.7-80.0); PLATELET COUNT 224 x10e3/uL (140-360); RED BLOOD COUNT 3.34 x10e6/uL (3.6-5.1); RED CELL DISTRIBUTION WIDTH 15.7 % (11.7-14.4)
[2018-03-08] MEDS: METRONIDAZOLE 500MG/NS 100ML 100 ML IV SCH ×3 (06:06→22:00)
[2018-03-08] MEDS: VANCOMYCIN 250MG/5ML ORAL SOLN PO SCH ×5 (06:06→23:16)
[2018-03-08 06:15] LABS: ANION GAP 13.1 mmol/L (8-16); CALCIUM 7.5 mg/dL (8.4-10.2); CREATININE, SERUM 1.36 mg/dL (0.57-1.11); POTASSIUM 3.1 mmol/L (3.5-5.1)
[2018-03-08] MEDS: NOREPINEPHRINE INJ 4MG/4ML 8 MG in DEXTROSE 5% 250ML 250 ML IV SCH ×2 (10:19→17:32)
[2018-03-08] MEDS: VASOPRESSIN 100 UNIT in DEXTROSE 5% 100ML 95 ML IV SCH (11:15)
[2018-03-08] MEDS: AZTREONAM 1 GM/NS 50 ML 50 ML IV SCH ×2 (11:30→23:16)
[2018-03-08] MEDS ORDERED: POTASSIUM CHLORIDE 20MEQ/100ML 100 ML IV PRN (12:30)
[2018-03-08] MEDS ORDERED: POTASSIUM CHLORIDE 10MEQ/100ML 200 ML IV ONE (14:30)
[2018-03-08] MEDS ORDERED: POTASSIUM CHLORIDE 20MEQ/100ML 200 ML IV ONE (15:45)
[2018-03-08 19:36] LABS: BASOPHILS # (AUTO) 0.1 (0.0-0.1); BASOPHILS % 0.3 % (0.0-1.0); EOSINOPHILS # (AUTO) 0.1 (0.0-0.4); EOSINOPHILS % 0.2 % (0.0-6.0); HEMATOCRIT 34.8 % (34.2-44.1); HEMOGLOBIN 10.8 g/dL (12.0-16.0); LYMPHOCYTES # (AUTO) 8.5 (1.0-3.2); MEAN CORPUSCULAR VOLUME 90.2 fL (81-99); MONOCYTES # (AUTO) 1.9 (0.2-0.8); NEUTROPHILS # (AUTO) 15.8 (2.1-6.9); NEUTROPHILS % 59.3 % (38.7-80.0); PLATELET COUNT 223 x10e3/uL (140-360); RED BLOOD COUNT 3.86 x10e6/uL (3.6-5.1); RED CELL DISTRIBUTION WIDTH 15.8 % (11.7-14.4)
[2018-03-08] MEDS ORDERED: ATROPINE SULFATE 0.1 MG/ML 10ML SYR ONE (19:42)
[2018-03-08 19:49] LABS: ALBUMIN 1.8 g/dL (3.5-5.0); ALBUMIN/GLOBULIN RATIO 0.5 (0.8-2.0); ANION GAP 14.7 mmol/L (8-16); CALCIUM 7.8 mg/dL (8.4-10.2); CREATININE, SERUM 1.34 mg/dL (0.57-1.11); POTASSIUM 4.7 mmol/L (3.5-5.1)
[2018-03-08 19:58] LABS: MAGNESIUM 1.4 MG/DL (1.3-2.1); PHOSPHORUS 4.1 MG/DL (2.3-4.7)
[2018-03-08 22:29] LABS: LYMPHOCYTES % (MANUAL) 30 % (19-48); MONOCYTES % (MANUAL) 7 % (3.4-9.0); NEUTROPHILS % (MANUAL) 63 % (40-74); PLATELET ESTIMATE ADEQUATE; PLATELET MORPHOLOGY COMMENT NORMAL; RBC MORPHOLOGY COMMENT NORMAL
== END 2018-03-08 23:54 | disposition expired | DRG 871 ==
LOC: ER 12:42 → ICU 19:40
PROVIDERS: ADMIT Internal Medicine; ATTEND Internal Medicine
PROC: 0BH18EZ Insertion of Endotracheal Airway into Trachea, Via Natural or Artificial Opening Endoscopic (ICD-10-PCS; principal; 2018-03-06)
PROC: 5A1945Z Respiratory Ventilation, 24-96 Consecutive Hours (ICD-10-PCS; 2018-03-06)
PROC: 02HV33Z Insertion of Infusion Device into Superior Vena Cava, Percutaneous Approach (ICD-10-PCS; 2018-03-06)
PROC: B5181ZA Fluoroscopy of Superior Vena Cava using Low Osmolar Contrast, Guidance (ICD-10-PCS; 2018-03-06)
DX: A41.9 Sepsis, unspecified organism (principal); R65.21 Severe sepsis with septic shock; J96.01 Acute respiratory failure with hypoxia; G93.40 Encephalopathy, unspecified; N17.9 Acute kidney failure, unspecified; E87.2 Acidosis; N39.0 Urinary tract infection, site not specified; E86.0 Dehydration; F03.90 Unspecified dementia, unspecified severity, without behavioral disturbance, psychotic disturbance, mood disturbance, and anxiety; E78.5 Hyperlipidemia, unspecified; K21.9 Gastro-esophageal reflux disease without esophagitis; K56.41 Fecal impaction; E11.40 Type 2 diabetes mellitus with diabetic neuropathy, unspecified; Z66 Do not resuscitate
CPT/HCPCS: 31500; 36415; 36555; 36556; 36600; 70450; 71045; 74018; 74176; 74470; 76937; 80048; 80053; 81001; 82550; 82553; 82805; 82948; 83605; 83735; 84100; 84484; 85025; 85610; 85730; 87040; 87086; 87493; 93005; 94002; 94003; 94640; 99285; C1751; J0696; J1940; J2250; J3480; J7030